=== PATIENT | female | born 1995 | race Caucasian/White ===

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

== ENCOUNTER 2017-01-06 16:55 | Emergency (ER) | payer SELFPAY ==
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
[2017-01-06] MEDS ORDERED: ACETAMINOPHEN 500 MG TABLET PO ONE (18:14)
[2017-01-06 18:55] LABS: URINE APPEARANCE CLOUDY; URINE BILIRUBIN NEGATIVE (NEGATIVE); URINE BLOOD NEGATIVE (NEGATIVE); URINE COLOR YELLOW; URINE GLUCOSE (UA) NEGATIVE (NEGATIVE); URINE KETONE NEGATIVE (NEGATIVE); URINE LEUKOCYTE ESTERASE SMALL (NEGATIVE); URINE NITRITE NEGATIVE (NEGATIVE); URINE PROTEIN NEGATIVE (NEGATIVE); URINE UROBILINOGEN 0.2 E.U./dL (0.20 - 1.00)
[2017-01-06 19:02] LABS: HCG,QUALITATIVE URINE NEGATIVE (NEGATIVE); URINE AMORPHOUS SEDIMENT 3+; URINE BACTERIA NONE SEEN; URINE EPITHELIAL CELLS NONE SEEN (FEW); URINE RBC NONE SEEN (NONE SEEN); URINE WBC 0 - 2 (0-2/hpf)
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
== END 2017-01-06 19:10 | disposition home or self-care (01) ==
LOC: ER 16:55
DX: S60.222A Contusion of left hand, initial encounter (principal); M54.2 Cervicalgia; V49.49XA Driver injured in collision with other motor vehicles in traffic accident, initial encounter; Y92.410 Unspecified street and highway as the place of occurrence of the external cause
CPT/HCPCS: 72125; 81001; 81025; 99283; 99284

== ENCOUNTER 2019-04-12 20:53 | Emergency (ER) | payer SELFPAY ==
[2019-04-12] MEDS ORDERED: ONDANSETRON HCL IV 4 MG/2 ML VIAL IVP ONE (21:08)
--- NOTE | 2019-04-12 21:12 | Emergency Department Record ---
History of Present Illness - General Chief complaint: complication Stated complaint: /NAUSEA,VOMITING,DIZINESS Time Seen by Provider: 04/12/19 20:55 Source: Patient Mode of Arrival: Ambulatory Limitations: No limitations - History of Present Illness Initial comments: 23 yo at 17 weeks gestation presents to ED for evaluation of nausea, vomiting symptoms since this morning. Patient reports taking Reglan for her symptoms at home without improvement. Patient denies abdominal pain, cramping, or vaginal spotting symptoms. Patient denies fevers, chills, or urinary symptoms at home. Patient denies health problems at her baseline. MD Complaint: Other Onset/Timin -: Days(s) Severity: Moderate Consistency: Intermittent Improves with: None Worsens with: None Associated symptoms: Denies other symptoms Vaginal bleeding: None No complications - Related Data Home Medications Medication Instructions Recorded Confirmed Last Taken Famotidine 40 mg PO TID 04/12/19 04/12/19 Unknown Metoclopramide HCl 10 mg PO QHS 04/12/19 04/12/19 Unknown Pnv No.118/Iron Fumarate/FA 1 tab PO DAILY 04/12/19 04/12/19 Unknown [Se-Jose 19 Chewable Tablet] Previous Rx's Medication Instructions Recorded Cephalexin [Keflex] 500 mg PO TID #20 cap 04/12/19 Allergies Allergy/AdvReac Type Severity Reaction Status Date / Time purple dye Allergy ITCHING Uncoded 05/13/16 08:56 Review of Systems Constitutional: Denies: Chills, Fever, Malaise, Night sweats Eyes: Denies: Eye discharge, Eye pain ENT: Denies: Congestion, Ear pain, Epistaxis Respiratory: Denies: Cough, Dyspnea Cardiovascular: Denies: Chest pain, Dyspnea on exertion Endocrine: Denies: Fatigue, Heat or cold intolerance Gastrointestinal: Reports: Nausea, Vomiting. Denies: Abdominal pain, Constipation Genitourinary: Denies: Incontinence, Retention Musculoskeletal: Denies: Arthralgia, Back pain Skin: Denies: Bruising, Change in color Neurological: Denies: Abnormal gait, Confusion, Headache, Seizure Psychiatric: Denies: Anxiety Hematological/Lymphatic: Denies: Anemia, Blood Clots Past Medical History - SOCIAL HISTORY Smoking Status: Never smoker Drug Use: None - RESPIRATORY Hx Respiratory Disorders: No Hx Tuberculosis: No - CARDIOVASCULAR Hx Cardio Disorders: No - NEURO Hx Neuro Disorders: No - GI Hx GI Disorders: No - Hx Genitourinary Disorders: No - ENDOCRINE Hx Endocrine Disorders: No - MUSCULOSKELETAL Hx Musculoskeletal Disorders: No - PSYCH Hx Psych Problems: No - HEMATOLOGY/ONCOLOGY Hx Hematology/Oncology Disorders: No Physical Exam - General General Appearance: Alert, Oriented x3, Cooperative, Mild distress Limitations: No limitations - Head Head exam: Atraumatic, Normocephalic, Normal inspection Head exam detail: negative: Abrasion, Contusion, Gaxiola's sign, General tenderness, Hematoma, Laceration - Eye Eye exam: Normal appearance. negative: Conjunctival injection, Periorbital swelling, Periorbital tenderness, Scleral icterus - ENT Ear exam: negative: Auricular hematoma, Auricular trauma Nasal Exam: negative: Active bleeding, Discharge, Dried blood, Foreign body Mouth exam: negative: Drooling, Laceration, Muffled voice, Tongue elevation - Neck Neck exam: Normal inspection. negative: Meningismus, Tenderness - Respiratory Respiratory exam: Normal lung sounds bilaterally. negative: Rales, Respiratory distress, Rhonchi, Stridor - Cardiovascular Cardiovascular Exam: Regular rate, Normal rhythm, Normal heart sounds - GI/Abdominal GI/Abdominal exam: Soft. negative: Rebound, Rigid, Tenderness - Rectal Rectal exam: Deferred - exam: Deferred - Extremities Extremities exam: Normal inspection. negative: Pedal edema, Tenderness - Back Back exam: Denies: CVA tenderness (R), CVA tenderness (L) - Neurological Neurological exam: Alert, Normal gait, Oriented X3 - Psychiatric Psychiatric exam: Normal affect, Normal mood - Skin Skin exam: Normal color. negative: Abrasion Type of lesion: negative: abrasion Course Vital Signs 04/12/19 21:03 Temperature 97.9 F Pulse Rate [ 77 Left] Respiratory 16 Rate Blood Pressure 105/68 [Left] Pulse Ox 100 - Reevaluation(s) Reevaluation #1: 04/12/19 22:12 Laboratory studies were reviewed and appear grossly unremarkable for an acute process except for the following: Hgb 9.2 HCT 31.9 UA pending at this time. Reevaluation #2: 04/12/19 22:36 UA was reviewed: 0-2 RBCs 0-2 WBCs Moderate Bacteria 3-6 Epithelial cells Patient was updated on all results, will initiate treatment with Keflex as directed. Patient reports improvement in her nausea symptoms, no vomiting while ED. Patient appears stable for discharge at this time. Medical Decision Making - Lab Data Result diagrams: 04/12/19 21:40 04/12/19 21:40 Disposition Disposition: Discharge Clinical Impression: Nausea and vomiting during UTI (urinary tract infection) Qualifiers: Urinary tract infection type: acute cystitis Hematuria presence: without hematuria Qualified Code(s): N30.00 - Acute cystitis without hematuria Disposition: Home, Self-Care Condition: (2) Stable Instructions: Nausea and Vomiting in (ED) Additional Instructions: Return to ED if your symptoms worsen or if you have any concerns. Continue Reglan as directed. Keflex as directed. Follow-up with your family doctor in 3-5 days as directed. Prescriptions: Cephalexin [Keflex] 500 mg PO TID #20 cap Forms: Patient Portal Access Time of Disposition: 22:37 Quality - Quality Measures Quality Measures: N/A - Blood Pressure Screening Does Patient Have Any of the Following: No Blood Pressure Classification: Normal BP Reading Systolic Measurement: 105 Diastolic Measurement: 68 Screening for High Blood Pressure: < Normal BP, F/U Not Required > [G8783]
[2019-04-12] MEDS ORDERED: 0.9 % SODIUM CHLORIDE 1000ML 1,000 ML IV SCH (21:15)
[2019-04-12 21:51] LABS: HEMATOCRIT 31.9 % (35.0-47.0); HEMOGLOBIN 9.2 gm/dl (11.6-16.0); MEAN CELL VOLUME 65.9 fl (81-97); MEAN CORPUSCULAR HGB CONC 28.8 g/dl (32-36); MEAN PLATELET VOLUME 9.2 fl (7.4-10.4); PLATELET COUNT 398 K/uL (130-400); RED BLOOD COUNT 4.84 M/uL (3.80-5.40); RED CELL DISTRIBUTION WIDTH 19.6 % (11.5-14.5)
[2019-04-12 22:04] LABS: BLOOD UREA NITROGEN 8 mg/dL (6-20); CREATININE 0.5 mg/dL (0.5-0.9); EST GLOMERULAR FILTRATION RATE > 60 mL/min; TOTAL PROTEIN 6.7 g/dL (6.6-8.7)
[2019-04-12 22:06] LABS: ANISOCYTOSIS 1+; GLUCOSE,RANDOM 95 mg/dL (74-109); PLATELET ESTIMATE NORMAL (NORMAL)
[2019-04-12 22:07] LABS: HYPOCHROMIA 1+; MICROCYTOSIS 2+
[2019-04-12 22:09] LABS: ALB/GLOB RATIO 1.1 (1.1-1.8); ALBUMIN 3.5 g/dL (4.0-5.0); ALKALINE PHOSPHATASE 54 U/L (35-104); ALT/SGPT 16 U/L (<33); AST/SGOT 22 U/L (10.0-35.0)
[2019-04-12 22:32] LABS: URINE APPEARANCE SL CLOUDY; URINE BILIRUBIN NEGATIVE (NEGATIVE); URINE BLOOD NEGATIVE (NEGATIVE); URINE GLUCOSE (UA) NEGATIVE (NEGATIVE); URINE KETONE 15 mg/dL (NEGATIVE); URINE LEUKOCYTE ESTERASE NEGATIVE (NEGATIVE); URINE NITRITE NEGATIVE (NEGATIVE); URINE PROTEIN TRACE (NEGATIVE)
[2019-04-12 22:33] LABS: URINE COLOR DARK YELLOW
[2019-04-12 22:37] LABS: URINE BACTERIA MODERATE; URINE MUCUS HEAVY; URINE RBC 0 - 2 (NONE SEEN); URINE WBC 0 - 2 (0-2/hpf)
[2019-04-12] MEDS ORDERED: CEPHALEXIN 500 MG CAPSULE PO STA (22:55)
== END 2019-04-12 23:11 | disposition home or self-care (01) ==
LOC: ER 20:53
DX: O23.12 Infections of bladder in pregnancy, second trimester (principal); Z3A.17 17 weeks gestation of pregnancy; R42 Dizziness and giddiness; R11.2 Nausea with vomiting, unspecified
CPT/HCPCS: 99284 ×2; 96374; 96361; 80053; 81001; 85027; J2405; J7030